=== PATIENT | female | born 1940 | race Caucasian/White ===

== ENCOUNTER 2019-04-14 12:38 | Emergency (ER) | payer MEDICARE, BC ==
[2019-04-14] MEDS ORDERED: ACETAMINOPHEN 1,000 MG/100 ML BTL IVPB ONE (12:52)
--- NOTE | 2019-04-14 12:52 | Emergency Department Record ---
History of Present Illness - General Chief Complaint: Headache Migraine Stated Complaint: JAW PAIN,SLURRING WORDS Time Seen by Provider: 04/14/19 12:40 Source: Patient, Family Mode of Arrival: Ambulatory Limitations: No limitations - History of Present Illness Initial Comments: 79 yo female presents with speech changes, facial expression changes, and he adache. The onset was at 11:30am per the . He states they were at [facility] when she developed the symptoms. He noted that she was slurred and the left side of the face seemed asymmetric. She developed the headache at the time as well. She has known HTN with some control issue in the last few months with medication changes. She has aortic disease followed by the [facility]. When they got home from [facility] they noticed a little trouble walking as well. Dr Chau is her PCP. The gave a 325mg aspirin at 12:25pm. No choking. No chest pain or RUPESH. He noted she seemed to be having trouble with decision making as well. Hx of HTN, Non rheumatic aortic valve disease, hyperlipidemia, , Location: Other Place: Outdoors Severity: Moderate Quality: Constant Improves With: None Worsens With: None Context: Sudden onset Associated Symptoms: Denies other symptoms Treatments Prior to Arrival: Aspirin Treatment Prior to Arrival Comment:: Aspirin 325 mg at noon - Symptoms of Stroke Symptoms of stroke: Slurred Speech, Unable to Think Clearly - Related Data Home Medications: Home Medications Medication Instructions Recorded Confirmed Last Taken Aspirin [Aspir-Low] 81 mg PO DAILY 04/14/19 04/14/19 Unknown Calcium Citrate/Vitamin D3 1 each PO DAILY 04/14/19 04/14/19 Unknown [Citracal-Vit D 250 mg-200 Tab] Carvedilol 12.5 mg PO BID 04/14/19 04/14/19 04/14/19 Cetirizine HCl [Zyrtec] 10 mg PO DAILY 04/14/19 04/14/19 Unknown Cinnamon Bark [Cinnamon] 500 mg PO DAILY 04/14/19 04/14/19 Unknown Fish Oil/Dha/Epa [Fish Oil 1,200 1 each PO DAILY 04/14/19 04/14/19 Unknown mg Fish Oil] Flaxseed Oil 1,300 mg PO DAILY 04/14/19 04/14/19 Unknown Glucosam/Feliberto-Msm1/C/Nasim/Bosw 1 tab PO DAILY 04/14/19 04/14/19 Unknown [Osteo Bi-Flex] Ketotifen Fumarate [Zaditor] 5 ml OP QHS 04/14/19 04/14/19 Unknown Lysine HCl [l-Lysine] 500 mg PO BID 04/14/19 04/14/19 Unknown Metformin HCl 500 mg PO QAM 04/14/19 04/14/19 04/14/19 Multivitamin [Multi-Vitamin Daily] 1 each PO DAILY 04/14/19 04/14/19 Unknown Rosuvastatin Calcium 20 mg PO DAILY 04/14/19 04/14/19 Unknown Telmisartan 80 mg PO DAILY 04/14/19 04/14/19 Unknown Triamcinolone Acetonide [Nasacort] 1 spray NS ASDIR 04/14/19 04/14/19 Unknown Ubidecarenone [Coq-10] 200 mg PO DAILY 04/14/19 04/14/19 Unknown Vitamin E 400 unit PO DAILY 04/14/19 04/14/19 Unknown Allergies/Adverse Reactions: Allergies Allergy/AdvReac Type Severity Reaction Status Date / Time Penicillins Allergy PT UNSURE Verified 04/14/19 13:17 OF REACTION Travel Screening - Travel/Exposure Within Last 30 Days Have you traveled within the last 30 days?: No Review of Systems Constitutional: Denies: Chills, Fever, Malaise, Weakness Eyes: Denies: Eye discharge, Eye pain, Photophobia, Vision change ENT: Denies: Congestion, Throat pain Respiratory: Denies: Cough, Dyspnea, Stridor, Wheezes Cardiovascular: Denies: Chest pain, Dyspnea on exertion, Edema, Palpitations, Syncope Endocrine: Denies: Fatigue, Polydipsia, Polyuria Gastrointestinal: Denies: Abdominal pain, Diarrhea, Nausea, Vomiting Genitourinary: Denies: Dysuria, Urgency Musculoskeletal: Denies: Arthralgia, Back pain, Joint swelling, Myalgia, Neck pain Skin: Denies: Bruising, Change in color, Rash Neurological: Reports: Abnormal gait, Confusion, Headache, Weakness. Denies: Numbness, Paresthesias, Seizure, Tingling, Tremors, Vertigo Psychiatric: Denies: Anxiety Hematological/Lymphatic: Denies: Easy bleeding, Easy bruising Physical Exam - General General Appearance: Alert, Cooperative, No acute distress, Other (Not oriented to place) Limitations: No limitations - Head Head exam: Atraumatic, Normocephalic, Normal inspection - Eye Eye exam: Normal appearance, PERRL, EOMI. negative: Conjunctival injection, Nystagmus, Periorbital swelling, Scleral icterus - ENT ENT exam: Normal exam, Mucous membranes moist Ear exam: Normal external inspection Nasal Exam: Normal inspection Mouth exam: Normal external inspection - Neck Neck exam: Normal inspection, Full ROM. negative: Meningismus, Tenderness - Respiratory Respiratory exam: Normal lung sounds bilaterally. negative: Respiratory distress - Cardiovascular Cardiovascular Exam: Regular rate, Normal rhythm, Normal heart sounds, Systolic murmur Peripheral Pulses: 2+: Radial (R), Radial (L) - GI/Abdominal GI/Abdominal exam: Soft - Rectal Rectal exam: Deferred - exam: Deferred - Extremities Extremities exam: Normal inspection, Full ROM. negative: Calf tenderness, Pedal edema, Tenderness - Back Back exam: Denies: CVA tenderness (R), CVA tenderness (L) - Neurological Neurological exam: Abnormal gait, Alert, Altered (not sure of location), Motor sensory deficit, Reflexes normal. negative: CN II-XII intact (asymmetric smil e), Normal gait, Oriented X3 - Psychiatric Psychiatric exam: Normal affect, Normal mood. negative: Agitated, Anxious - Skin Skin exam: negative: Cyanosis, Diaphoretic, Erythema, Mottled Stroke Assessment - NIH Stroke Scale 1a. Level of Consciousness: (0) Alert 1b. LOC Questions: (0) Answers Correctly 1c. LOC Commands: (0) Performs Tasks Correctly 2. Best Gaze: (0) Normal 3. Visual: (0) No Visual Loss 4. Facial Palsy: (1) Minor Paralysis 5a. Motor Arm Left: (0) No Drift 5b. Motor Arm Right: (0) No Drift 6a. Motor Leg Left: (0) No Drift 6b. Motor Leg Right: (0) No Drift 7. Limb Ataxia: (0) Absent 8. Sensory: (0) Normal 9. Best Language: (0) No Aphasia 10. Dysarthria: (1) Mild/Moderate Dysarthria 11. Extinction/Inattention: (0) No Abnormality NIH Stoke Scale Total: 2 Course Vital Signs 04/14/19 12:41 Pulse Rate 74 Respiratory 18 Rate Blood Pressure 210/83 Pulse Ox 96 - Reevaluation(s) Reevaluation #1: The patient took an aspirin prior to arrival 325mg NIH scale 2 at this time Onset 11:30am 04/14/19 12:56 04/14/19 13:07 EKG #1: 12:57 Rate: 71 Rhythm: sinus [place]: K Intervals: normal ST segments: no acute changes, poor R wave progression Prior: 04/14/19 13:10 Patient returned from radiology Radiology was contacted as well as [facility] radiology for stat read. No answer with the radiologist 04/14/19 13:16 Again contacted [facility]iology. No answer. ED called at [facility] to assist 04/14/19 13:27 The HCT report was obtained. No acute process. No bleed. Chronic small vessel. 04/14/19 13:28 No acute changes on the CMP or [facility] was contacted for Stroke 04/14/19 13:33 Dr Ashraf of Stroke accepts the patient for transfer 04/14/19 13:51 Recheck No facial drop now. The smile is now symmetric Clear Speech currently Current NIH is 0. 04/14/19 14:04 We were notified by EMS they were called off on another call. Dispatch called the need for the stat transfer again. Other agencies will be called due to this delay by [facility]. 04/14/19 14:24 Waiting for EMS from [place]. Clinically stable with cleared speech and symmetric smile. Medical Decision Making - Lab Data Result diagrams: 04/14/19 12:50 04/14/19 12:50 Disposition Disposition: Transfer Clinical Impression: Dysarthria, Facial weakness Hypertension Qualifiers: Hypertension type: unspecified Qualified Code(s): I10 - Essential (primary) hypertension Disposition: Acute Care Hospital Transfer Transfer To: [facility] Reason For Transfer: HTN with speech symptoms Accepting Physician: Pascale Time Discussed w/Accepting Physician: 13:28 Condition: (2) Stable Forms: Patient Portal Access Time of Disposition: 13:25 Quality - Quality Measures Quality Measures: N/A - Blood Pressure Screening Does Patient Have Any of the Following: Active Dx of HTN Blood Pressure Classification: Pre-Hypertensive BP Reading Systolic Measurement: 210 Diastolic Measurement: 83 Screening for High Blood Pressure: Patient Exclusion, Hx of HTN [G9744]
[2019-04-14 13:04] LABS: ABSOLUTE NEUTROPHIL COUNT 5.57; BASO % 0.2 % (0-6); EOS % 1.9 % (0-6); GRAN % 59.9 % (47-80); HEMATOCRIT 39.5 % (35.0-47.0); HEMOGLOBIN 13.2 gm/dl (11.6-16.0); LYMPH % 29.6 % (16-45); MEAN CELL VOLUME 95.9 fl (81-97); MEAN CORPUSCULAR HGB CONC 33.4 g/dl (32-36); MEAN PLATELET VOLUME 9.9 fl (7.4-10.4); MONO % 8.4 % (0-9); PLATELET COUNT 230 K/uL (130-400); RED BLOOD COUNT 4.12 M/uL (3.80-5.40); RED CELL DISTRIBUTION WIDTH 13.5 % (11.5-14.5); WHITE BLOOD COUNT W/O DIFF 9.3 K/uL (4.2-12.2)
[2019-04-14 13:14] LABS: BILIRUBIN,TOTAL 0.7 mg/dL (0.2-1.0)
[2019-04-14 13:16] LABS: INR 1.1; PROTHROMBIN TIME (PATIENT) 10.8 SECONDS (9.5-12.1)
[2019-04-14 13:17] LABS: PARTIAL THROMBOPLASTIN TIME 23.8 SECONDS (24.5-39.1)
[2019-04-14 13:19] LABS: ALB/GLOB RATIO 1.8 (1.1-1.8); ALBUMIN 4.5 g/dL (4.0-5.0)
--- NOTE | 2019-04-14 15:12 | CT SCAN REPORT ---
EXAM: CT OF THE BRAIN WITHOUT CONTRAST HISTORY: OCCIPITAL HEADACHE WITH RIGHT FACIAL DROOP AND SLURRED SPEECH. PATIENT HAD A SIMILAR EPISODE YESTERDAY. TECHNIQUE: Noncontrast CT of the brain was obtained. Comparison: None. FINDINGS: The parenchyma shows no sign of acute hemorrhage, edema or any obvious mass lesion. Akins and white matter attenuation appears appropriate. There are some areas of subtle decreased attenuation of the periventricular white matter bilaterally that suggests chronic microvascular ischemic change. There are physiologic calcifications of the basal ganglia bilaterally. The CSF spaces show no effacement or midline shift. They are of normal size and symmetrical in appearance. SKULL: No sign of any specific bony lesion. PARANASAL SINUSES: There is mucosal thickening especially of the sphenoid sinus, but there is no sign of acute sinus disease or sinus destruction. IMPRESSION: 1. CHRONIC CHANGES IN THE BRAIN, BUT NO EVIDENCE OF ACUTE INTRACRANIAL PATHOLOGY. IT MAY TAKE UP TO TWENTY-FOUR HOU[address] SIGNS OF ISCHEMIC INFARCT BECOME EVIDENT ON CT. 2. NO EVIDENCE OF ACUTE INTRACRANIAL BLEED. JOB NUMBER: [id number] [facility]
== END 2019-04-14 14:39 | disposition short-term general hospital (02) ==
LOC: ER 12:38
DX: R47.1 Dysarthria and anarthria (principal); R29.810 Facial weakness; R47.81 Slurred speech; R51 Headache; I35.8 Other nonrheumatic aortic valve disorders; E87.5 Hyperkalemia; I10 Essential (primary) hypertension
CPT/HCPCS: 70450; 80053; 85025; 85610; 85730; 93005; 93010; 99285